=== PATIENT | female | born 1955 | race Caucasian/White ===

== ENCOUNTER → 2017-05-13 | Outpatient (CLI) | payer OTHER ==
--- NOTE | 2017-05-13 14:13 | PN ---
PROGRESS NOTE 61-year-old female patient coming in for a followup regarding her obstructive sleep apnea. Her last evaluation was back in September of 2014. This patient has been very compliant with CPAP therapy. The patient has severe disease with an AHI of 51. The patient has been on a CPAP pressure of 9 cm of water. She continues to use his CPAP every night without any interruption as the patient continues to see good clinical benefit and response. No snoring no major hypersomnia or sleepiness while on treatment. She is averaging at least 8 hours of CPAP use every night and his CPAP use for more than 4 hours is 100%, no leaks around the mask and she is using a French FX nose pillow. Her AHI while on treatment is down to 7.8, and no periodic breathing. Her weight has been relatively stable and on over the past 6 months the patient has joined [employer] and she has lost approximately 6 pounds. Her [place] score is at 8. She is also looking for an alternative mask and I suggested a Dream Wear nose mask. Her current vitals: BP is 136/75, pulse rate 72, respirations 16, temp 98.1, saturation 95% on room air. Weight is 175. [place] score is at 8 and BMI 33. GENERAL APPEARANCE: Calm, comfortable. HEAD: Atraumatic, normocephalic. NECK: Supple. There is no JVD. No goiter or neck masses. Lungs are clear to auscultation. There is no wheeze or rhonchi. Heart sounds regular rhythm. Normal S1, S2. No S3, S4. No murmurs. Abdomen is soft, nontender. No organomegaly. No direct tenderness, rebound or guarding. EXTREMITIES: No edema. No cyanosis or clubbing. Neuro: OA x3. There is no focal neurological deficits. Psych is also negative. IMPRESSION: 1. Severe symptomatic obstructive sleep apnea with an AHI of 51. The patient continues to receive successful CPAP therapy at a pressure of 9 cm of water. 2. Obesity with interval weight loss in the order of 6 pounds. 3. Hyperlipidemia. 4. Depression. 5. History of bladder prolapse. PLAN: 1. Continue CPAP therapy at same level of pressure. 2. Continue efforts to lose weight. 3. Switch this patient to a Dream Wear nose mask as an alternative mask for the French FX. 4. Medical sleep hygiene measures. 5. See me back in a year's time or earlier if needed. MMODL / IJN: [id number] /
== END | disposition home or self-care (01) ==
LOC: SLEEP 13:09
PROVIDERS: ATTEND Internal Medicine Critical Care Medicine
DX: G47.33 Obstructive sleep apnea (adult) (pediatric) (principal); E78.5 Hyperlipidemia, unspecified; F32.9 Major depressive disorder, single episode, unspecified; E66.9 Obesity, unspecified; Z68.33 Body mass index [BMI] 33.0-33.9, adult; Z87.448 Personal history of other diseases of urinary system

== ENCOUNTER → 2017-11-18 | Outpatient (CLI) | payer OTHER ==
--- NOTE | 2017-11-18 20:28 | PN ---
PROGRESS NOTE This patient is coming in for a six-month follow up regarding her also CONNOR treatment. She has still been very compliant. Her baseline AHI of 51, and the patient is using a DreamWear nose mask small size. She is trying to lose weight and she has lost some. She was wearing 175 pounds 6 months ago. She is currently down to 163. She is very compliant with CPAP use. She is averaging around 8 hours of CPAP use per night. Her CPAP is set at a pressure of 9 cm of water. Her leak factor 5 L/minute. AHI while on treatment down to 4.7, her CPAP use for more than 4 hours is more than 90%. No tiredness or sleepiness during the day. No restlessness in the lower extremities. No other complaints otherwise. REVIEW OF SYSTEMS: 12-point review of system was done. Positive findings are mentioned above in the history of present illness. The patient has no complaints of headache, dizziness, seizures, shortness of breath, chest pain, palpitations, nausea, heartburn, restlessness in the lower extremities or any other unusual sleep behavior at night. PHYSICAL EXAMINATION: BP is 151/83, pulse 74, respirations 16, temperature 98.0. Weight is 163 and saturation 96% on room air. GENERAL APPEARANCE: Calm, comfortable in no acute distress. Head is atraumatic, normocephalic. NECK: Supple. There is no JVD. No goiter or neck masses. Mallampati class IV. LUNGS: Clear to auscultation. HEART: Sounds regular rate and rhythm. Normal S1, S2. No S3. No murmurs. ABDOMEN: Soft, nontender. No organomegaly. EXTREMITIES: No edema, cyanosis, clubbing. NEUROLOGIC: Alert and oriented x3. There is no focal neurological deficits. PSYCHIATRIC: Negative for anxiety or depression. SKIN: Negative for any wounds or ulceration. IMPRESSION: 1. Symptomatic obstructive sleep apnea with an AHI of 51, currently on CPAP pressure of 9 cm of water. 2. Obesity with interval weight loss. Current weight is down to 163. 3. Hypersomnia, improved. 4. Hyperlipidemia. 5. Depression. 6. History of bladder prolapse. PLAN: 1. Continue using CPAP at a pressure of 9 with a dream wear small size nose mask and supplies will be renewed. 2. Encourage further weight loss. 3. Treatment was successful. See me back in a year's time or earlier if needed. MMODL / IJN: [id number] /
== END | disposition home or self-care (01) ==
LOC: SLEEP 14:46
PROVIDERS: ATTEND Internal Medicine Critical Care Medicine
DX: G47.33 Obstructive sleep apnea (adult) (pediatric) (principal); G47.10 Hypersomnia, unspecified; E66.9 Obesity, unspecified; R63.4 Abnormal weight loss; E78.5 Hyperlipidemia, unspecified; F32.9 Major depressive disorder, single episode, unspecified; Z87.448 Personal history of other diseases of urinary system; Z99.89 Dependence on other enabling machines and devices

== ENCOUNTER → 2018-07-07 | Outpatient (CLI) | payer OTHER ==
--- NOTE | 2018-07-07 16:57 | PN ---
PROGRESS NOTE This is a very pleasant, 60-year-old female patient, presenting for a compliance check regarding obstructive sleep apnea. The patient has severe disease with an AHI of 51, and she is on a CPAP pressure of 9 cm of water. She is using a DreamWear nose mask. She has been achieving around 7.8 hours of CPAP use per night. Her CPAP use for more than 4 hours is more than 90%. Leak factor is 1 L/minute. AHI is down to 3.3, she continues to benefit. She has no complaints. No restless in lower extremities. No nocturnal shortness of breath, chest pain, no heartburn or any other complaints otherwise. REVIEW OF SYSTEMS: 12-point review of system was done. Positive findings are mentioned above history of present illness. PHYSICAL EXAMINATION: BP is 153/76, pulse 80, respirations 98.0, saturation 95% on room air. Weight is 173. Height is 5 feet 1 inch. [place] score 7, BMI 32. GENERAL APPEARANCE: Calm comfortable. Head is atraumatic, normocephalic. NECK: Supple. No JVD. No goiter or neck mass. Lungs diminished, otherwise clear. HEART: Sounds regular rate and rhythm. Normal S1, S2. No S3. No murmurs. ABDOMEN: Soft, nontender. No organomegaly. EXTREMITIES: No edema. No cyanosis or clubbing. NEUROLOGIC: Alert and oriented x3. There is no focal neurological deficits. PSYCHIATRIC: Negative for anxiety or depression. IMPRESSION: 1. Symptomatic obstructive sleep apnea, severe with an AHI of 51, currently on CPAP with a pressure of 9, continues to be successfully treated. 2. Hypersomnia, recovered. 3. Hyperlipidemia. 4. Depression. 5. Bladder prolapse. PLAN: 1. Keep same CPAP pressure of 9. 2. Encourage weight loss. 3. Offer an alternative mask which would be the AirFit N20 small size nose mask. 4. Treatment is successful. The patient is compliant. We will continue to follow. MMODL / IJN: [id number] /
== END | disposition home or self-care (01) ==
LOC: SLEEP 15:06
PROVIDERS: ATTEND Internal Medicine Critical Care Medicine
DX: G47.33 Obstructive sleep apnea (adult) (pediatric) (principal); E78.5 Hyperlipidemia, unspecified; F32.9 Major depressive disorder, single episode, unspecified; N81.10 Cystocele, unspecified; Z99.89 Dependence on other enabling machines and devices

== ENCOUNTER → 2020-11-21 | Outpatient (CLI) | payer MEDICARE, OTHER ==
--- NOTE | 2020-11-21 19:23 | PN ---
PROGRESS NOTE Anel is 65 with severe CONNOR with an AHI of 51. The patient is coming in for a regular check. Doing extremely well. Utilizing a ResMed CPAP unit at a pressure of 9 cm of water. Over the past 30 days, compliance has been great and the patient has been utilizing her CPAP more than 4 hours 100% of the time. Averaging around 7.7 hours of CPAP use per night. Her AHI is down to 4.3, leak is around 18 L/minute. She is using AirFit P10 nasal pillows. Her weight is up by around 25 pounds. Nevertheless despite her weight gain, she has been effectively treated. No new complaints otherwise for now. Blood pressure is under adequate control. No hypersomnia or sleepiness during the day. No tiredness or fatigue. She is able to drive. She does not fall asleep while driving. Occasionally wakes up in the middle of the night and she is able to generate sleep without any major difficulties. PHYSICAL EXAMINATION: VITAL SIGNS: BP is 145/79, pulse 99, respirations 16, temperature 97.0. Saturation 98% on room air. BMI 32.9, weight is 186. General appearance: Calm, comfortable. Head atraumatic, normocephalic. Neck is supple. There is no JVD. No goiter or neck masses. Lungs diminished breath sounds, otherwise clear. Heart sounds are regular rate and rhythm. Normal S1, S2. No S3, S4. No murmurs. Abdomen soft, nontender. No organomegaly. Extremities: No edema, no cyanosis or clubbing. NEUROLOGIC: Awake and alert. There is no focal neurological deficits. PSYCHIATRIC: Negative for anxiety or depression. IMPRESSION: 1. Severe obstructive sleep apnea, AHI of 51 currently on CPAP pressure of 9 with treatment is still effective. 2. Hypertension. 3. Hyperlipidemia. 4. Depression. 5. Bladder prolapse. PLAN: 1. Continue CPAP therapy at the same level of pressure at 9. 2. AirFit P10 small-sized refills were given. 3. No need for pressure adjustments. 4. Treatment is successful. 5. See me back in a year's time in followup earlier if needed. MMODL / IJN: [id number] /
== END | disposition home or self-care (01) ==
LOC: SLEEP 14:52
PROVIDERS: ATTEND Internal Medicine Critical Care Medicine
DX: G47.33 Obstructive sleep apnea (adult) (pediatric) (principal); I10 Essential (primary) hypertension; E78.5 Hyperlipidemia, unspecified; F32.9 Major depressive disorder, single episode, unspecified; N81.10 Cystocele, unspecified

== ENCOUNTER → 2022-03-26 | Outpatient (CLI) | payer MEDICARE ==
--- NOTE | 2022-03-26 14:56 | P.PN ---
Subjective Progress Note Date: 03/26/22 This is a 66-year-old female patient is coming in for a regular checkup regarding her obstructive sleep apnea. This is an annual check. The patient is known to me and the patient is currently utilizing CPAP therapy at a pressure maximum centimeters of water. She has a functioning ResMed 10 and her machine is adequately functioning for now. Her baseline AHI is 51. Over the past 1 year, the patient has lites are machine on a regular basis without any interruption. Her weight remains stable is around 190 pounds. Based on the compliance data that was collected from the machine over the past 30 days, the patient has utilize the machine 30 over 30 and the patient has achieved more than 4 hours 30 over 30 in the patient's leak is in order of 6 L per minute and her AHI is also 5.4. She is taking trazodone 50 mg overnight for sleep induction and maintenance. She is also on Effexor XR 75 mg by mouth daily. No major hypersomnia and sleepiness during the day. She is refreshed and alert during the day. No palpitation. No angina. No shortness of breath. Her her supplies are being regularly filled for now. No other issues. Objective - Exam BP is 148/76 with a pulse of 97 and respiration of 16 temperature of 97.2F saturation 94% on room air weight is 191 and [place] score is at 9 The patient appeared well nourished and normally developed. Vital signs as documented. Head exam is unremarkable. No scleral icterus or corneal arcus noted. Neck is without jugular venous distension, thyromegaly, or carotid bruits. Carotid upstrokes are brisk bilaterally. Lungs are clear to auscultation and percussion. Cardiac exam reveals the PMI to be normally sized and situated. Rhythm is regular. First and second heart sounds normal. No murmurs, rubs or gallops. Abdominal exam reveals normal bowel sounds, no masses, no organomegaly and no aortic enlargement. Extremities are nonedematous and both femoral and pedal pulses are normal.Examination of the skin revealed no evidence of significant rashes, suspicious appearing nevi or other concerning lesions.Neurologically, the patient is awake and alert and the patient does not have any focal neurological deficit. Cranial nerves are essentially intact. Assessment and Plan Plan: Obstructive sleep apnea severe with an AHI of 51 adequate treated with a CPAP pressure of 9 cm of water Hypersomnia improved and the patient remains successfully treated Depression maintained on Effexor Hyperlipidemia Hypertension History of bladder prolapse Plan Continue CPAP therapy at the same level of pressures and refilled the supplies. Treatment successful. No need for any adjustments. Machine is functional. The climate line would be assigned to automatic mode. She will see me back in one year's time in follow-up.
== END ==
LOC: SLEEP 13:58
PROVIDERS: ATTEND Internal Medicine Critical Care Medicine
DX: G47.33 Obstructive sleep apnea (adult) (pediatric) (principal); E78.5 Hyperlipidemia, unspecified; I10 Essential (primary) hypertension; F32.A Depression, unspecified; Z99.89 Dependence on other enabling machines and devices; Z87.448 Personal history of other diseases of urinary system

== ENCOUNTER 2022-10-08 08:10 | Day surgery (SDC) | payer MEDICARE ==
[~2022-10-08 08:10] MED LIST: LACTATED RINGERS 1,000 ML IV SCH; LIDOCAINE 1% (10MG/ML) FOR IV START INTRADERMA PRN
[2022-10-08 08:29] VITALS: RESP 16; TEMP 98.3
[2022-10-08] MEDS ORDERED: LIDOCAINE 2% INJ 20 MG/ML (2 ML VIAL) ONE (09:19)
[2022-10-08] MEDS ORDERED: PROPOFOL 10 MG/ML 20 ML VIAL IV ONE (09:19)
--- NOTE | 2022-10-08 09:30 | P.PCN ---
Date of Procedure: 10/08/22 Procedure(s) Performed: BRIEF HISTORY: Patient is a 67-year-old, pleasant, white female scheduled for an upper endoscopy as a part of evaluation of intermittent dysphagia to solids for the last 1 year duration. She also complains of globus sensation in her throat area.. PROCEDURE PERFORMED: Esophagogastroduodenoscopy. PREOPERATIVE DIAGNOSIS: History of GERD and intermittent dysphagia to solids/globus sensation IV sedation per anesthesia. PROCEDURE: After informed consent was obtained, the patient was brought into the endoscopy unit. IV sedation was administered by Anesthesia under continuous monitoring. Initially the Olympus GIF-140 video endoscope was inserted into the mouth. Esophagus intubated without any difficulty. There was mild tightness in the upper esophageal sphincter with no obvious stricture identified. No Zenker's diverticulum seen. The scope was then advanced was gradually advanced into the stomach and duodenum and carefully examined. The bulb and the second part of the duodenum appeared normal. The scope at this time was withdrawn to the stomach, adequately insufflated with air, and upon careful examination, mucosa of the antrum, body, cardia and the fundus appeared normal. The scope was then withdrawn into the esophagus. The GE junction was located at 39 cm from the incisors. Small hiatal hernia noted. Abscesses were done from the mid and distal esophagus to rule out years of age esophagitis The esophagus appeared normal. There were no erosions or ulcerations seen and the patient tolerated the procedure well. IMPRESSION: 1. Small hiatal hernia. 2. Mild tightness of the upper esophageal sphincter suggestive of early cricopharyngeal dysfunction. RECOMMENDATIONS: The findings of this examination were discussed with the patient as well as a family. Follow with biopsy results. She was advised to continue with soft diet. Continue with omeprazole 20 mg daily and follow antireflux measures..
[2022-10-08 10:07] VITALS: BP 171/82; PULSE 78
== END 2022-10-08 10:30 | disposition home or self-care (01) ==
LOC: ORWHC2ENDO 08:10
PROVIDERS: ATTEND Internal Medicine Gastroenterology
DX: K22.89 Other specified disease of esophagus (principal); K21.9 Gastro-esophageal reflux disease without esophagitis; K44.9 Diaphragmatic hernia without obstruction or gangrene; I10 Essential (primary) hypertension; E78.5 Hyperlipidemia, unspecified; F41.9 Anxiety disorder, unspecified; Z88.5 Allergy status to narcotic agent; Z79.899 Other long term (current) drug therapy
CPT/HCPCS: 88305; 43239; J2704; J2001

== ENCOUNTER → 2025-01-20 | Outpatient (CLI) | payer MEDICARE ==
--- NOTE | 2025-01-20 14:31 | US ---
EXAMINATION TYPE: US thyroid st tissue head/neck DATE OF EXAM: 01/20/2025 COMPARISON: NONE CLINICAL INDICATION: Female, 69 years old with history of E04.1 NODULE; Thyroid nodules TECHNIQUE: Grayscale and color Doppler imaging of the thyroid gland. FINDINGS: GLAND SIZE: Right Lobe: 3.7 x 1.3 x 1.8 cm Overall Parenchyma: homogeneous Left Lobe: 3.9 x 1.9 x 1.6 cm Overall Parenchyma: homogeneous Isthmus Thickness: .3 cm NODULES RIGHT: # of nodules measured on right: 0 LEFT: # of nodules measured on left: 2 1. .7 X .5 x .6 cm, upper medial, solid or almost completely solid, hypoechoic nodule, which is wid er than tall, with smooth margins, without echogenic foci. Prior size: no previous 2. 1.1 X 1.1 x 1.0 cm, lower lateral, mixed cystic and solid, hypoechoic nodule, which is wider th an tall, with smooth margins, without echogenic foci. Prior size: no previous 2017 ACR TI-RADS LEVEL: TR3 ISTHMUS: # of nodules measured in the isthmus: 0 Bilateral neck scanned, no evidence of lymphadenopathy. IMPRESSION: TR3 Mildly Suspicious: FNA if ? 2.5 cm; Follow if ? 1.5 cm at 1, 3, and 5 y Highest TI-RADS level nodule reported: 2017 ACR TI-RADS LEVEL: TR3 TI-RADS assessment score and recommendation for follow-up based on appropriate scoring and treatment protocols. TR1 Benign No FNA TR2 Not suspicious No FNA TR3: If nodule size is ? 2.5 cm, FNA is recommended. If nodule size is ? 1.5 cm, follow-up imaging at 1, 3, and 5 years is recommended. TR4: If nodule size is ? 1.5 cm, FNA is recommended. If nodule size is ? 1.0 cm, follow-up imaging at 1, 2, 3, and 5 years is recommended. TR5: If nodule size is ? 1.0 cm, FNA is recommended. If nodule size is ? 0.5 cm, annual follow-up for up to 5 years is recommended. TR 1 thyroid nodules have a 0.3 % risk of malignancy. TR 2 thyroid nodules have a 1.5 % risk of malignancy. TR 3 thyroid nodules have a 4.8 % risk of malignancy. TR 4 thyroid nodules have a 9.1 % risk of malignancy. TR 5 thyroid nodules have a 35 % risk of malignancy. [email or web address] [facility], , 01/20/2025 2:28 PM
== END | disposition home or self-care (01) ==
LOC: RADUSWWP 13:37
PROVIDERS: ATTEND Internal Medicine
DX: E04.2 Nontoxic multinodular goiter (principal)
CPT/HCPCS: 76536

== ENCOUNTER → 2025-01-21 | Outpatient (CLI) | payer MEDICARE ==
[2025-01-21 09:17] LABS: African American GFR (CKD) 80 (>60 ml/min/1.73 sqM); Blood Urea Nitrogen 20 mg/dL (7-17); Non-African American GFR(CKD) 70 (>60 ml/min/1.73 sqM)
--- NOTE | 2025-01-21 15:11 | CT ---
EXAMINATION TYPE: CT urogram wo/w con DATE OF EXAM: 01/21/2025 COMPARISON: None HISTORY: Hydronephrosis. CT DLP: 3519 mGycm Automated exposure control for dose reduction was used. CONTRAST: Performed with IV Contrast, patient injected with 100 ml mL of Isovue 370. FINDINGS: Bibasilar subsegmental atelectasis lung bases. The heart is mildly enlarged there is calcification of the aortic root and valve. Mild coronary artery calcification. No sizable pleural effusion. Mild reduced attenuation liver compatible hepatic steatosis. Gallbladder is distended but no gallston es. Spleen demonstrates small hypodensities most typical of benign cyst. Small accessory splenule. Pa ncreas normal. Adrenal glands have a normal appearance. Kidneys: There are bilateral punctate renal calculi measuring 1 to 2 mm with estimated 5 on the right and 3 on the left. There is mild bilateral hydronephrosis. There is suspicion of a left UPJ calcification measuring 3 mm in diameter. No suspicious appearing renal mass. The bladder is partially filled with contrast on delayed images with no wall thickening, calcificatio n or filling defect. There is changes of diverticulosis. No bowel obstruction. Appendix normal. Hypertrophic and degenerat иван change of the spine. Correlate for prior hysterectomy. IMPRESSION: 1. Mild bilateral hydronephrosis with a 3 mm left UVJ\distal ureteral calculus. 2. There are numerous additional bilateral nonobstructing renal calculi. No definite right ureteral o r obstructing calculus. [facility], , 01/21/2025 3:08 PM
== END | disposition home or self-care (01) ==
LOC: RADCTMAIN 08:10
PROVIDERS: ATTEND Urology
DX: N13.2 Hydronephrosis with renal and ureteral calculous obstruction (principal)
CPT/HCPCS: 82565; 84520; 74178; 36415; 74400; Q9967